=== PATIENT | female | born 1955 | race Caucasian/White ===

== ENCOUNTER 2018-08-25 17:41 | Emergency (ER) | payer MEDICAID ==
[~2018-08-25] VITALS: Ht 160 cm; Wt 68.0 kg
[2018-08-25] MEDS ORDERED: KETOROLAC 60MG/2ML VIAL IM STA (21:31)
[2018-08-25] MEDS ORDERED: HYDROCODONE/ACETAMINOPHEN 5/325MG TABLET PO STA (22:12)
[2018-08-26] MEDS ORDERED: HYDROCODONE/ACETAMINOPHEN 5/325MG TABLET PO ONE (02:00)
[2018-08-26 05:02] VITALS: BP 136/81
== END 2018-08-26 05:04 | disposition home or self-care (01) ==
LOC: ER 18:04
DX: S82.292A Other fracture of shaft of left tibia, initial encounter for closed fracture (principal); W01.0XXA Fall on same level from slipping, tripping and stumbling without subsequent striking against object, initial encounter; Y93.89 Activity, other specified; Y92.89 Other specified places as the place of occurrence of the external cause; Y99.8 Other external cause status
CPT/HCPCS: 73560; 73590; 96372; 99283; J1885; L1830; Z7610

== ENCOUNTER 2018-11-30 12:52 | Inpatient (IN) | payer MEDICAID ==
[~2018-11-30] VITALS: Ht 165.1 cm; Wt 64.4 kg
[2018-11-30] MEDS ORDERED: HYDROCODONE/ACETAMINOPHEN 5/325MG TABLET PO STA (14:38)
[2018-11-30] MEDS ORDERED: FUROSEMIDE 40MG/4ML VIAL IV ONE (14:45)
[2018-11-30 15:08] LABS: BASOPHILS % 0.9 % (0.0-2.0); EOSINOPHILS % 3.3 % (0.0-5.0); HEMATOCRIT. 21.9 % (36.0-48.0); LYMPHOCYTES % 32.7 % (20.0-50.0); MEAN CORPUSCULAR HEMOGLOBIN 20.8 pg (28.0-32.0); MEAN CORPUSCULAR VOLUME 72.2 fL (81.0-99.0); MONOCYTES % 10.8 % (2.0-8.0); NEUTROPHILS % 52.3 % (40.0-76.0); RED BLOOD CELL COUNT 3.04 mill/uL (4.2-5.4); RED CELL DISTRIBUTION WIDTH 23.7 % (11.6-14.6)
[2018-11-30 15:13] LABS: CHLORIDE 112 mEq/L (98-107)
[2018-11-30 15:14] LABS: INR 1.9; PROTHROMBIN TIME 18.8 sec (9.6-11.0)
[2018-11-30 15:15] LABS: HEMOGLOBIN. 6.3 g/dL (12.0-16.0)
[2018-11-30 15:35] LABS: MEAN PLATELET VOLUME 8.3 fl (7.4-10.4); PLATELET 92 x1000/uL (130-400)
[2018-11-30] MEDS ORDERED: DOCUSATE SODIUM 100MG CAPSULE PO PRN (18:15)
[2018-11-30] MEDS ORDERED: ONDANSETRON HCL 4MG/2ML INJ IV PRN (18:15)
[2018-11-30] MEDS ORDERED: TRAMADOL 50MG TABLET PO PRN ×2 (18:15→21:00)
[2018-11-30] MEDS ORDERED: GUAIFENESIN 200MG/10ML SUGAR FREE UDC PO PRN (18:15)
[2018-11-30] MEDS ORDERED: CLONIDINE 0.1MG TABLET PO PRN (18:15)
[2018-11-30] MEDS ORDERED: ZOLPIDEM TARTRATE 5MG TABLET PO PRN (18:15)
[2018-11-30] MEDS ORDERED: IPRATROPIUM/ALBUTEROL 0.5-3(2.5)MG/3ML NEB NEB PRN (18:15)
[2018-11-30] MEDS ORDERED: MAGNESIUM/ALUMINUM HYDROXIDE/SIMETHICONE 30ML UDC PO PRN (18:15)
[2018-11-30] MEDS ORDERED: NITROGLYCERIN 0.4MG TABLET SL SL PRN (18:15)
[2018-11-30] MEDS ORDERED: ACETAMINOPHEN 325MG TABLET PO PRN (18:15)
[2018-11-30] MEDS ORDERED: PHYTONADIONE 10 MG in DEXTROSE 5% WATER 50 ML IV ONE (19:45)
[2018-11-30 22:47] LABS: TOTAL IRON BINDING CAPACITY 404 ug/dL (250-450)
[2018-11-30 23:10] LABS: VITAMIN B12 SERUM 966 pg/mL (211-911)
[2018-11-30 23:12] LABS: HEPATITIS B SURFACE ANTIGEN NEGATIVE
[2018-11-30 23:41] LABS: HEPATITIS A AB IGM NEGATIVE (NEGATIVE)
[2018-11-30 23:59] VITALS: BP 121/61
[2018-12-01] MEDS: KETOROLAC 15MG/ML VIAL IV PRN ×2 (00:30→10:22)
[2018-12-01 01:00] VITALS: BP 101/53
[2018-12-01 01:18] VITALS: BP 101/55
[2018-12-01 01:30] VITALS: BP 105/55
[2018-12-01] MEDS ORDERED: CEFTRIAXONE 1 G PREMIX 50 ML IV SCH (02:00)
[2018-12-01 03:00] VITALS: BP 87/46
[2018-12-01 04:00] VITALS: BP 93/53
[2018-12-01] MEDS ORDERED: PANTOPRAZOLE SODIUM 40 MG/VIAL IV SCH (09:00)
[2018-12-01 10:40] LABS: BASOPHILS % 0.6 % (0.0-2.0); EOSINOPHILS % 4.3 % (0.0-5.0); HEMATOCRIT. 27.1 % (36.0-48.0); HEMOGLOBIN. 8.5 g/dL (12.0-16.0); LYMPHOCYTES % 24.3 % (20.0-50.0); MEAN CORPUSCULAR HEMOGLOBIN 23.6 pg (28.0-32.0); MEAN CORPUSCULAR VOLUME 75.5 fL (81.0-99.0); MEAN PLATELET VOLUME 8.5 fl (7.4-10.4); MONOCYTES % 8.9 % (2.0-8.0); NEUTROPHILS % 61.9 % (40.0-76.0); PLATELET 52 x1000/uL (130-400); RED BLOOD CELL COUNT 3.59 mill/uL (4.2-5.4); RED CELL DISTRIBUTION WIDTH 26.6 % (11.6-14.6)
[2018-12-01 10:46] LABS: CHLORIDE 110 mEq/L (98-107)
[2018-12-01 11:17] VITALS: BP 127/85
[2018-12-01 11:59] LABS: PLATELET ESTIMATE MARKEDLY DECREASED
== END 2018-12-01 11:55 | disposition home or self-care (01) ==
LOC: ER 12:52 → 8WST 17:47 → EDBEDREQ 17:49 → ENRESERV 21:20
PROVIDERS: ADMIT Internal Medicine; ATTEND Internal Medicine
PROC: 30233N1 Transfusion of Nonautologous Red Blood Cells into Peripheral Vein, Percutaneous Approach (ICD-10-PCS; principal; 2018-11-30)
DX: K74.60 Unspecified cirrhosis of liver (principal); E43 Unspecified severe protein-calorie malnutrition; D61.818 Other pancytopenia; C22.9 Malignant neoplasm of liver, not specified as primary or secondary; D64.9 Anemia, unspecified; B19.20 Unspecified viral hepatitis C without hepatic coma; Z85.05 Personal history of malignant neoplasm of liver; R60.0 Localized edema
CPT/HCPCS: 36415; 71045; 73560; 76700; 80320; 82607; 82746; 83036; 83540; 83550; 83880; 84484; 86705; 86709; 86803; 86850; 86900; 86920; 87340; 93005; 93970; 96374; 99285; C9113; J0696; J1885; J1940; J3430; J7040; J7060; P9016; G0480

== ENCOUNTER 2019-06-25 19:05 | Inpatient (IN) | payer MEDICAID ==
[~2019-06-25] VITALS: Ht 160 cm; Wt 59.9 kg
[2019-06-25] MEDS ORDERED: ONDANSETRON HCL 4MG/2ML INJ IV STA (20:06)
[2019-06-25] MEDS ORDERED: SODIUM CHLORIDE 0.9% 1,000 ML IV ONE (20:06)
[2019-06-25 20:33] LABS: BASOPHILS % 0.7 % (0.0-2.0); EOSINOPHILS % 3.1 % (0.0-5.0); HEMATOCRIT. 36.4 % (36.0-48.0); HEMOGLOBIN. 12.1 g/dL (12.0-16.0); MEAN CORPUSCULAR HEMOGLOBIN 32.2 pg (28.0-32.0); MEAN CORPUSCULAR VOLUME 96.5 fL (81.0-99.0); MEAN PLATELET VOLUME 9.4 fl (7.4-10.4); MONOCYTES % 8.1 % (2.0-8.0); NEUTROPHILS % 70.1 % (40.0-76.0); PLATELET 125 x1000/uL (130-400); RED BLOOD CELL COUNT 3.77 mill/uL (4.2-5.4); RED CELL DISTRIBUTION WIDTH 16.5 % (11.6-14.6)
[2019-06-25 20:35] LABS: CLARITY URINE CLEAR (CLEAR); COLOR URINE DARK YELLOW (YELLOW); KETONES URINE NEGATIVE (NEGATIVE); LEUKOCYTE ESTERASE URINE 3+ (NEGATIVE); NITRITE URINE POSITIVE (NEGATIVE); OCCULT BLOOD URINE TRACE (NEGATIVE); PROTEIN URINE NEGATIVE (NEGATIVE); SPECIFIC GRAVITY URINE 1.017 (1.005-1.030)
[2019-06-25 20:37] LABS: CHLORIDE 108 mEq/L (98-107); INR 1.2; PROTHROMBIN TIME 12.9 sec (9.6-11.0)
[2019-06-25 20:42] LABS: ETHANOL BLOOD < 10 mg/dL
[2019-06-25 20:48] LABS: *AMPHETAMINES SCREEN URINE NEGATIVE (NEGATIVE); *BARBITURATES SCREEN URINE NEGATIVE (NEGATIVE); *BENZODIAZEPINES SCREEN URINE NEGATIVE (NEGATIVE); *COCAINE SCREEN URINE NEGATIVE (NEGATIVE)
[2019-06-25 20:50] LABS: CANNABINOID URINE SCREEN PRESUMTIVE POSITIVE (NEGATIVE); METHADONE URINE SCREEN NEGATIVE (NEGATIVE); OPIATES URINE SCREEN PRESUMTIVE POSITIVE (NEGATIVE); PHENCYCLIDINE URINE SCREEN NEGATIVE (NEGATIVE)
[2019-06-25] MEDS ORDERED: MIDAZOLAM HCL 2 MG/2 ML VIAL IV ONE (21:00)
[2019-06-25] MEDS ORDERED: MORPHINE SULFATE 2 MG/ML CPJ (NOT FOR IM USE) IV ONE (21:00)
[2019-06-25] MEDS ORDERED: CEFTRIAXONE 1 G PREMIX 50 ML IV ONE (23:30)
[2019-06-26] MEDS ORDERED: DOCUSATE SODIUM 100MG CAPSULE PO PRN (04:30)
[2019-06-26] MEDS ORDERED: MAGNESIUM/ALUMINUM HYDROXIDE/SIMETHICONE 30ML UDC PO PRN (04:30)
[2019-06-26] MEDS ORDERED: ACETAMINOPHEN 325MG TABLET PO PRN (04:30)
[2019-06-26] MEDS ORDERED: CLONIDINE 0.1MG TABLET PO PRN (04:30)
[2019-06-26] MEDS ORDERED: ONDANSETRON HCL 4MG/2ML INJ IV PRN (04:30)
[2019-06-26] MEDS ORDERED: HYDROCODONE/ACETAMINOPHEN 5/325MG TABLET PO PRN (04:30)
[2019-06-26] MEDS ORDERED: LACTULOSE 20G/30ML UDC PO SCH (05:00)
[2019-06-26] MEDS: SODIUM CHLORIDE 0.45% 1,000 ML IV SCH ×2 (05:15→21:55)
[2019-06-26] MEDS: HYDROMORPHONE HCL/PF 2MG/ML CPJ IV PRN ×2 (05:31→21:49)
[2019-06-26] MEDS: LACTULOSE 20G/30ML UDC PO SCH ×2 (14:00→21:55)
[2019-06-26] MEDS: LORAZEPAM 2MG/ML CPJ IV PRN (15:10)
[2019-06-26 20:00] VITALS: BP 129/63
[2019-06-26 22:00] VITALS: BP 154/77
[2019-06-26] MEDS ORDERED: CEFTRIAXONE 1 G PREMIX 50 ML IV SCH (23:00)
[2019-06-27] VITALS (12 sets, daily range): BP systolic 107–128; BP diastolic 47–80
[2019-06-27] MEDS: HYDROMORPHONE HCL/PF 2MG/ML CPJ IV PRN ×4 (02:12→18:42)
[2019-06-27] MEDS: LORAZEPAM 2MG/ML CPJ IV PRN (02:27)
[2019-06-27] MEDS: LACTULOSE 20G/30ML UDC PO SCH ×3 (07:03→21:54)
[2019-06-27 09:32] LABS: BASOPHILS % 0.7 % (0.0-2.0); EOSINOPHILS % 0.9 % (0.0-5.0); HEMATOCRIT. 33.2 % (36.0-48.0); LYMPHOCYTES % 7.5 % (20.0-50.0); MEAN CORPUSCULAR HEMOGLOBIN 32.2 pg (28.0-32.0); MEAN CORPUSCULAR VOLUME 96.8 fL (81.0-99.0); MEAN PLATELET VOLUME 9.3 fl (7.4-10.4); MONOCYTES % 7.5 % (2.0-8.0); NEUTROPHILS % 83.4 % (40.0-76.0); PLATELET 90 x1000/uL (130-400); RED BLOOD CELL COUNT 3.43 mill/uL (4.2-5.4); RED CELL DISTRIBUTION WIDTH 16.7 % (11.6-14.6)
[2019-06-27 09:44] LABS: CHLORIDE 116 mEq/L (98-107)
[2019-06-27] MEDS: SODIUM CHLORIDE 0.45% 1,000 ML IV SCH (12:42)
[2019-06-27] MEDS: CEFTRIAXONE 1 G PREMIX 50 ML IV SCH (21:54)
[2019-06-28] VITALS (11 sets, daily range): BP systolic 96–124; BP diastolic 41–87
[2019-06-28] MEDS: HYDROMORPHONE HCL/PF 2MG/ML CPJ IV PRN ×5 (00:47→22:45)
[2019-06-28] MEDS: SODIUM CHLORIDE 0.45% 1,000 ML IV SCH ×2 (05:32→11:02)
[2019-06-28] MEDS: LACTULOSE 20G/30ML UDC PO SCH ×3 (06:00→21:51)
[2019-06-28] MEDS: CEFTRIAXONE 1 G PREMIX 50 ML IV SCH (21:51)
[2019-06-29] VITALS (12 sets, daily range): BP systolic 95–140; BP diastolic 48–69
[2019-06-29] MEDS: HYDROMORPHONE HCL/PF 2MG/ML CPJ IV PRN ×4 (01:50→16:15)
[2019-06-29] MEDS: LORAZEPAM 2MG/ML CPJ IV PRN (04:47)
[2019-06-29] MEDS: LACTULOSE 20G/30ML UDC PO SCH ×3 (06:54→22:47)
[2019-06-29] MEDS: SODIUM CHLORIDE 0.45% 1,000 ML IV SCH ×2 (06:56→12:19)
[2019-06-29 09:47] LABS: BASOPHILS % 0.3 % (0.0-2.0); EOSINOPHILS % 2.9 % (0.0-5.0); HEMATOCRIT. 28.7 % (36.0-48.0); HEMOGLOBIN. 9.7 g/dL (12.0-16.0); LYMPHOCYTES % 10.7 % (20.0-50.0); MEAN CORPUSCULAR HEMOGLOBIN 32.7 pg (28.0-32.0); MEAN CORPUSCULAR VOLUME 96.7 fL (81.0-99.0); NEUTROPHILS % 79.1 % (40.0-76.0); PLATELET 51 x1000/uL (130-400); RED BLOOD CELL COUNT 2.96 mill/uL (4.2-5.4); RED CELL DISTRIBUTION WIDTH 16.5 % (11.6-14.6)
[2019-06-29 09:48] LABS: CHLORIDE 115 mEq/L (98-107)
[2019-06-29] MEDS: CEFTRIAXONE 1 G PREMIX 50 ML IV SCH (23:44)
[2019-06-30] VITALS (12 sets, daily range): BP systolic 82–121; BP diastolic 39–72
[2019-06-30] MEDS: HYDROMORPHONE HCL/PF 2MG/ML CPJ IV PRN ×5 (00:47→20:52)
[2019-06-30] MEDS: SODIUM CHLORIDE 0.45% 1,000 ML IV SCH ×2 (02:25→14:51)
[2019-06-30] MEDS: LACTULOSE 20G/30ML UDC PO SCH ×3 (05:12→21:15)
[2019-06-30] MEDS: CEFTRIAXONE 1 G PREMIX 50 ML IV SCH (21:09)
[2019-07-01] VITALS (12 sets, daily range): BP systolic 90–123; BP diastolic 47–77
[2019-07-01] MEDS: LACTULOSE 20G/30ML UDC PO SCH ×3 (06:00→21:36)
[2019-07-01] MEDS: HYDROMORPHONE HCL/PF 2MG/ML CPJ IM PRN ×4 (08:12→21:09)
[2019-07-01] MEDS: SODIUM CHLORIDE 0.45% 1,000 ML IV SCH ×3 (18:13→21:36)
[2019-07-01] MEDS: ZOLPIDEM TARTRATE 5MG TABLET PO PRN (20:38)
[2019-07-01] MEDS: CEFTRIAXONE 1 G PREMIX 50 ML IV SCH (20:39)
[2019-07-02] VITALS (11 sets, daily range): BP systolic 83–96; BP diastolic 45–60
[2019-07-02] MEDS: LACTULOSE 20G/30ML UDC PO SCH ×3 (05:22→21:45)
[2019-07-02] MEDS: GUAIFENESIN 200MG/10ML SUGAR FREE UDC PO PRN ×2 (08:00→08:01)
[2019-07-02] MEDS: HYDROMORPHONE HCL/PF 2MG/ML CPJ IV PRN ×2 (08:01→21:46)
[2019-07-02 08:54] LABS: HEMATOCRIT 26.3 % (36.0-48.0); MEAN CORPUSCULAR HEMOGLOBIN 32.7 pg (28.0-32.0); MEAN CORPUSCULAR VOLUME 95.8 fL (81.0-99.0); RED BLOOD CELL COUNT 2.75 mill/uL (4.2-5.4); RED CELL DISTRIBUTION WIDTH 16.7 % (11.6-14.6)
[2019-07-02 09:06] LABS: CHLORIDE 110 mEq/L (98-107)
[2019-07-02] MEDS: MIDODRINE HCL 2.5MG TABLET PO SCH ×2 (13:12→18:35)
[2019-07-02] MEDS: SODIUM CHLORIDE 0.45% 1,000 ML IV SCH (19:01)
[2019-07-02] MEDS: CEFTRIAXONE 1 G PREMIX 50 ML IV SCH (20:34)
[2019-07-02] MEDS: ZOLPIDEM TARTRATE 5MG TABLET PO PRN (23:33)
[2019-07-03] VITALS (12 sets, daily range): BP systolic 91–112; BP diastolic 53–76
[2019-07-03] MEDS: LACTULOSE 20G/30ML UDC PO SCH ×3 (05:57→22:28)
[2019-07-03] MEDS: MIDODRINE HCL 2.5MG TABLET PO SCH ×3 (09:49→17:18)
[2019-07-03] MEDS: SODIUM CHLORIDE 0.45% 1,000 ML IV SCH ×2 (09:54→22:28)
[2019-07-03] MEDS: HYDROMORPHONE HCL/PF 2MG/ML CPJ IV PRN (17:46)
[2019-07-04] VITALS (12 sets, daily range): BP systolic 81–112; BP diastolic 31–62
[2019-07-04] MEDS: HYDROMORPHONE HCL/PF 2MG/ML CPJ IV PRN ×6 (00:23→23:22)
[2019-07-04] MEDS: MIDODRINE HCL 2.5MG TABLET PO SCH ×3 (08:41→16:47)
[2019-07-04 10:33] LABS: PLATELET 37 x1000/uL (130-400)
[2019-07-04] MEDS: SODIUM CHLORIDE 0.45% 1,000 ML IV SCH (11:43)
[2019-07-04] MEDS: LACTULOSE 20G/30ML UDC PO SCH ×2 (14:00→22:00)
[2019-07-05] VITALS (21 sets, daily range): BP systolic 42–223; BP diastolic 17–136
[2019-07-05] MEDS: SODIUM CHLORIDE 0.45% 1,000 ML IV SCH (01:12)
[2019-07-05] MEDS: HYDROMORPHONE HCL/PF 2MG/ML CPJ IV PRN (02:49)
[2019-07-05] MEDS: LACTULOSE 20G/30ML UDC PO SCH (06:00)
[2019-07-05] MEDS ORDERED: ETOMIDATE 2MG/ML 10ML VIAL IV ONE (07:00)
[2019-07-05] MEDS ORDERED: SUCCINYLCHOLINE CHLORIDE 200MG/10ML IV ONE (07:00)
[2019-07-05] MEDS ORDERED: EPINEPHRINE 1 MG in SODIUM CHLORIDE 0.9% 249 ML IV PRN (08:00)
[2019-07-05] MEDS ORDERED: NOREPINEPHRINE 32 MG in DEXT 5% WATER 468 ML IV PRN (08:30)
[2019-07-05 08:54] LABS: HEMATOCRIT. 27.4 % (36.0-48.0); HEMOGLOBIN. 8.8 g/dL (12.0-16.0); MEAN CORPUSCULAR HEMOGLOBIN 31.8 pg (28.0-32.0); MEAN CORPUSCULAR VOLUME 99.4 fL (81.0-99.0); RED BLOOD CELL COUNT 2.76 mill/uL (4.2-5.4); RED CELL DISTRIBUTION WIDTH 17.8 % (11.6-14.6)
[2019-07-05 09:29] LABS: CHLORIDE 113 mEq/L (98-107)
[2019-07-05] MEDS ORDERED: MORPHINE SULFATE 250 MG in DEXT 5% WATER 240 ML IV PRN (10:00)
[2019-07-05] MEDS ORDERED: LORAZEPAM 2MG/ML CPJ IV PRN (10:00)
[2019-07-05 10:12] LABS: NUCLEATED RED BLOOD CELLS 2 /100 WBC; PLATELET ESTIMATE MARKEDLY DECREASED
[2019-07-05 10:13] LABS: PLATELET 29 x1000/uL (130-400)
[2019-07-05] MEDS ORDERED: MORPHINE SULFATE 250 MG in DEXT 5% WATER 225 ML IV PRN (10:44)
[2019-07-06] VITALS: BP 53/25
== END 2019-07-06 05:49 | disposition expired | DRG 279 ==
LOC: ER 19:05 → EDBEDREQTM 22:44 → EDBEDREQ 22:44 → ENRESERV 06-26 18:08 → 3WST 06-26 18:57 → 6EST 07-04 23:43 → CVICU 07-05 07:40 → 6EST 07-05 21:20
PROVIDERS: ADMIT Hospitalist; ATTEND Hospitalist
PROC: 5A12012 Performance of Cardiac Output, Single, Manual (ICD-10-PCS; principal; 2019-07-05)
PROC: 0BH17EZ Insertion of Endotracheal Airway into Trachea, Via Natural or Artificial Opening (ICD-10-PCS; 2019-07-05)
PROC: 5A1935Z Respiratory Ventilation, Less than 24 Consecutive Hours (ICD-10-PCS; 2019-07-05)
DX: K72.90 Hepatic failure, unspecified without coma (principal); J96.00 Acute respiratory failure, unspecified whether with hypoxia or hypercapnia; E43 Unspecified severe protein-calorie malnutrition; G92 Toxic encephalopathy; L89.106 Pressure-induced deep tissue damage of unspecified part of back; E72.20 Disorder of urea cycle metabolism, unspecified; N17.9 Acute kidney failure, unspecified; I95.9 Hypotension, unspecified; D69.6 Thrombocytopenia, unspecified; L89.156 Pressure-induced deep tissue damage of sacral region; I46.9 Cardiac arrest, cause unspecified; C22.9 Malignant neoplasm of liver, not specified as primary or secondary; E87.5 Hyperkalemia; C80.1 Malignant (primary) neoplasm, unspecified; N18.9 Chronic kidney disease, unspecified; D64.9 Anemia, unspecified; Z51.5 Encounter for palliative care; Z66 Do not resuscitate; N39.0 Urinary tract infection, site not specified; Z68.23 Body mass index [BMI] 23.0-23.9, adult; Z92.3 Personal history of irradiation; Z85.05 Personal history of malignant neoplasm of liver
CPT/HCPCS: 36415; 71045; 80048; 80053; 80305; 80320; 81003; 82140; 82962; 83605; 83880; 84134; 84145; 84484; 85025; 85027; 86850; 86870; 86900; 93005; 93970; 97162; 97166; 97530; 97535; 99291; J0330; J0696; J1170; J2060; J2250; J2270; J2274; J2405; J3490; J7030; J7060; G0480